=== PATIENT | male | born 1970 | race American Indian/Alaskan Native ===

== ENCOUNTER 2018-09-02 10:46 | Inpatient (IN) | payer SELFPAY ==
[2018-09-02 13:06] LABS: Basophils % (Auto) 0.7 % (0.0-1.8); Eosinophils % (Auto) 0.7 % (0.0-4.3); Hematocrit 39.9 % (35.5-45.6); Hemoglobin 13.4 gm/dl (11.8-15.2); Lymphocytes # (Auto) 1.4 K/mm3 (1.2-5.4); Lymphocytes % (Auto) 21.4 % (13.4-35.0); Mean Corpuscular HGB Conc 34 % (32-34); Mean Corpuscular Volume 94 fl (84-94); Monocytes # (Auto) 0.7 K/mm3 (0.0-0.8); Monocytes % (Auto) 10.5 % (0.0-7.3); Platelet Count 355 K/mm3 (140-440); Red Blood Count 4.24 M/mm3 (3.65-5.03); Red Cell Distribution Width 14.8 % (13.2-15.2)
[2018-09-02 13:29] LABS: Albumin 2.8 g/dL (3.9-5); Calcium 8.1 mg/dL (8.4-10.2)
--- NOTE | 2018-09-02 13:29 | XRay Report ---
PROCEDURE: XR CHEST ROUTINE 2V TECHNIQUE: PA and lateral chest radiographs were obtained. HISTORY: shortness of breath and bilateral lower leg edema. COMPARISONS: None. FINDINGS: Heart: Normal. Mediastinum/Vessels: Normal. Lungs/Pleural space: There are patchy airspace opacities throughout the right midlung, compatible wi th pneumonia. No effusion or pneumothorax is seen. Bony thorax: No acute osseous abnormality. IMPRESSION: Patchy airspace opacities are present throughout the right midlung, compatible with pneu monia. Recommend radiographic follow-up to resolution. This document is electronically signed by Karen Cortes MD., September 02 2018 01:27:36 PM ET
--- NOTE | 2018-09-02 14:00 | Emergency Department Report ---
ED General Adult HPI - General Chief complaint: Extremity Problem,Nontraumatic Stated complaint: COUGH/FEET SWOLLEN Time Seen by Provider: 09/02/18 12:32 Source: patient Mode of arrival: Ambulatory Limitations: No Limitations - History of Present Illness Initial comments: 47 Y/O -Malagasy male presents to the emergency room for bilateral feet swelling and shortness of breath. Patient denies any past medical history currently takes no medications on a daily basis and has no known drug allergies. Location: chest, lower extremity Quality: aching Consistency: constant Improves with: none Worsens with: movement Associated Symptoms: cough, shortness of breath Treatments Prior to Arrival: none - Related Data Previous Rx's Medication Instructions Recorded Last Taken Type Aspirin EC 81 mg PO QDAY #100 tablet 09/13/18 Unknown Rx Carvedilol [Coreg] 3.125 mg PO BID 60 Days #60 tablet 09/13/18 Unknown Rx Furosemide [Lasix TAB] 40 mg PO QDAY #30 tablet 09/13/18 Unknown Rx Lisinopril [Zestril TAB] 2.5 mg PO QDAY 30 Days #30 tablet 09/13/18 Unknown Rx Spironolactone [Aldactone] 25 mg PO QDAY #30 tablet 09/13/18 Unknown Rx Allergies Allergy/AdvReac Type Severity Reaction Status Date / Time enoxaparin [From Lovenox] Allergy Shortness Verified 09/03/18 02:59 of Breath azithromycin [From Zithromax] AdvReac Dizziness Verified 09/04/18 08:03 ED Review of Systems ROS: Stated complaint: COUGH/FEET SWOLLEN Other details as noted in HPI ED Past Medical Hx - Past Medical History Previous Medical History?: No - Surgical History Past Surgical History?: No - Social History Smoking Status: Current Every Day Smoker Substance Use Type: None - Medications Home Medications: Home Medications Medication Instructions Recorded Confirmed Last Taken Type Aspirin EC 81 mg PO QDAY #100 tablet 09/13/18 Unknown Rx Carvedilol [Coreg] 3.125 mg PO BID 60 Days #60 tablet 09/13/18 Unknown Rx Furosemide [Lasix TAB] 40 mg PO QDAY #30 tablet 09/13/18 Unknown Rx Lisinopril [Zestril TAB] 2.5 mg PO QDAY 30 Days #30 tablet 09/13/18 Unknown Rx Spironolactone [Aldactone] 25 mg PO QDAY #30 tablet 09/13/18 Unknown Rx ED Physical Exam - General Limitations: No Limitations General appearance: alert, in no apparent distress - Head Head exam: Present: atraumatic, normocephalic - Eye Eye exam: Present: normal appearance, EOMI - ENT ENT exam: Present: mucous membranes moist - Neck Neck exam: Present: normal inspection - Respiratory Respiratory exam: Present: normal lung sounds bilaterally. Absent: respiratory distress - Cardiovascular Cardiovascular Exam: Present: tachycardia - GI/Abdominal GI/Abdominal exam: Present: soft, normal bowel sounds - Extremities Exam Extremities exam: Present: normal inspection - Back Exam Back exam: Present: normal inspection - Neurological Exam Neurological exam: Present: alert, oriented X3 - Psychiatric Psychiatric exam: Present: normal affect, normal mood - Skin Skin exam: Present: warm, dry, intact, normal color. Absent: rash ED Course Vital Signs 09/02/18 09/02/18 09/02/18 10:50 12:22 15:27 Temperature 97.5 F L 98.2 F Pulse Rate 94 H 98 H Respiratory 20 16 16 Rate Blood Pressure 107/75 Blood Pressure 119/84 [Left] O2 Sat by Pulse 100 100 Oximetry ED Medical Decision Making - Lab Data Result diagrams: 09/03/18 05:07 09/05/18 06:17 Laboratory Tests 09/02/18 09/02/18 12:54 12:54 WBC 6.4 RBC 4.24 Hgb 13.4 Hct 39.9 MCV 94 MCH 32 MCHC 34 RDW 14.8 Plt Count 355 Lymph % (Auto) 21.4 [place] % (Auto) 10.5 H Eos % (Auto) 0.7 Baso % (Auto) 0.7 Lymph # 1.4 Boundary # 0.7 Eos # 0.0 Baso # 0.0 Seg Neutrophils % 66.7 Seg Neutrophils # 4.2 Sodium 139 Potassium 4.1 Chloride 101.1 Carbon Dioxide 27 Anion Gap 15 BUN 20 Creatinine 1.3 Estimated GFR 59 BUN/Creatinine Ratio 15 Glucose 87 Calcium 8.1 L Total Bilirubin 0.20 AST 64 H ALT 222 H Alkaline Phosphatase 168 H NT-Pro-B Natriuret Pep 2561 H Total Protein 5.5 L Albumin 2.8 L Albumin/Globulin Ratio 1.0 - Radiology Data Radiology results: report reviewed Patient: KALEY BALDWIN MR#: [id number] [birth year] : 1970 Acct:[id number] Age/Sex: 47 / M ADM Date: 09/02/18 Loc: ED Attending Dr: Ordering Physician: BLADIMIR PAPPAS Date of Service: 09/02/18 Procedure(s): XR chest routine 2V Accession Number(s): [id number] cc: BLADIMIR PAPPAS Fluoro Time In Minutes: PROCEDURE: XR CHEST ROUTINE 2V TECHNIQUE: PA and lateral chest radiographs were obtained. HISTORY: shortness of breath and bilateral lower leg edema. COMPARISONS: None. FINDINGS: Heart: Normal. Mediastinum/Vessels: Normal. Lungs/Pleural space: There are patchy airspace opacities throughout the right midlung, compatible with pneumonia. No effusion or pneumothorax is seen. Bony thorax: No acute osseous abnormality. IMPRESSION: Patchy airspace opacities are present throughout the right midlung, compatible with pneumonia. Recommend radiographic follow-up to resolution. This document is electronically signed by Karen Cortes MD., September 02 2018 01:27:36 PM ET Transcribed By: [facility] Dictated By: KAREN CORTES M.D. Electronically Authenticated By: KAREN CORTES M.D. Signed Date/Time: 09/02/18 1329 DD/ 1255 TD/TT: 09/02/18 1255 - Medical Decision Making And evaluated by this provider in fast track. CBC CMP's BNP chest x-rays ordered. IV Insertion Pl., Levaquin 500 mg IV, Lasix 40 mg IV. Spoke to Dr. Vazquez hospitalist evaluation admit to surgical telemetry remote. Critical care attestation.: If time is entered above; I have spent that time in minutes in the direct care of this critically ill patient, excluding procedure time. ED Disposition Clinical Impression: Pneumonia Qualifiers: Laterality: right Lung location: unspecified part of lung Disposition: - OP ADMIT IP TO THIS HOSP Is pt being admited?: Yes Does the pt Need Aspirin: Yes Condition: Stable
[2018-09-02] MEDS ORDERED: LEVAQUIN 500MG/100ML 500 MG/100 ML BAG IV ONE (14:01)
[2018-09-02] MEDS ORDERED: LASIX IV ONE (14:13)
--- NOTE | 2018-09-02 17:51 | History and Physical Report ---
History of Present Illness Date of examination: 09/02/18 Date of admission: 09/02/18 15:09 Chief complaint: Shortness of breath on exertion and bilateral lower extremity swelling for 2 weeks History of present illness: 47-year-old -Danish male with no significant past medical history presents to the emergency room for shortness of breath on exertion for 2 weeks. No precipitating factor. Patient also developed swelling of both lower extremities over the last 2 weeks. No precipitating factors. No hypertension or CHF in the past. No fever or chills. Shortness of breath on minimal exertion about 100 feet. Past Medical History No known history. Surgical History Past Surgical History?: No Social History Smoking Status: Current Every Day Smoker--pack a day. Substance Use Type: None Family history: Htn Review of systems ROS: Stated complaint: COUGH/FEET SWOLLEN Other details as noted in HPI COLOR IRREGULARITIES Medications and Allergies Allergies Allergy/AdvReac Type Severity Reaction Status Date / Time No Known Allergies Allergy Unverified 09/02/18 10:48 Exam - Physical Exam Narrative exam: Lying in bed comfortably - Constitutional Vitals: Temp Pulse Resp BP Pulse Ox 98.2 F 98 H 16 119/84 100 09/02/18 15:27 09/02/18 15:27 09/02/18 15:27 09/02/18 15:27 09/02/18 15:27 General appearance: Present: mild distress, well-nourished - EENT Eyes: Present: PERRL ENT: hearing intact, clear oral mucosa - Neck Neck: Present: supple, normal ROM - Respiratory Respiratory effort: normal Respiratory: bilateral: CTA - Cardiovascular Heart rate: 92 Rhythm: regular Heart Sounds: Present: S1 & S2. Absent: rub, click - Extremities Extremities: no ischemia, pulses intact, pulses symmetrical, No edema Extremity abnormal: edema (2+ pitting edema) Peripheral Pulses: within normal limits - Abdominal General gastrointestinal: Present: soft, non-tender, non-distended, normal bowel sounds Male genitourinary: Present: normal - Integumentary Integumentary: Present: clear, warm, dry - Musculoskeletal Musculoskeletal: gait normal, strength equal bilaterally - Psychiatric Psychiatric: appropriate mood/affect, intact judgment & insight - Neurologic Neurologic: CNII-XII intact, moves all extremities Results - Labs CBC & Chem 7: 09/02/18 12:54 09/02/18 12:54 Labs: Laboratory Last Values WBC 6.4 K/mm3 (4.5-11.0) 09/02/18 12:54 RBC 4.24 M/mm3 (3.65-5.03) 09/02/18 12:54 Hgb 13.4 gm/dl (11.8-15.2) 09/02/18 12:54 Hct 39.9 % (35.5-45.6) 09/02/18 12:54 MCV 94 fl (84-94) 09/02/18 12:54 MCH 32 pg (28-32) 09/02/18 12:54 MCHC 34 % (32-34) 09/02/18 12:54 RDW 14.8 % (13.2-15.2) 09/02/18 12:54 Plt Count 355 K/mm3 (140-440) 09/02/18 12:54 Lymph % (Auto) 21.4 % (13.4-35.0) 09/02/18 12:54 [place] % (Auto) 10.5 % (0.0-7.3) H 09/02/18 12:54 Eos % (Auto) 0.7 % (0.0-4.3) 09/02/18 12:54 Baso % (Auto) 0.7 % (0.0-1.8) 09/02/18 12:54 Lymph # 1.4 K/mm3 (1.2-5.4) 09/02/18 12:54 [place] # 0.7 K/mm3 (0.0-0.8) 09/02/18 12:54 Eos # 0.0 K/mm3 (0.0-0.4) 09/02/18 12:54 Baso # 0.0 K/mm3 (0.0-0.1) 09/02/18 12:54 Seg Neutrophils % 66.7 % (40.0-70.0) 09/02/18 12:54 Seg Neutrophils # 4.2 K/mm3 (1.8-7.7) 09/02/18 12:54 Sodium 139 mmol/L (137-145) 09/02/18 12:54 Potassium 4.1 mmol/L (3.6-5.0) 09/02/18 12:54 Chloride 101.1 mmol/L (98-107) 09/02/18 12:54 Carbon Dioxide 27 mmol/L (22-30) 09/02/18 12:54 Anion Gap 15 mmol/L 09/02/18 12:54 BUN 20 mg/dL (9-20) 09/02/18 12:54 Creatinine 1.3 mg/dL (0.8-1.5) 09/02/18 12:54 Estimated GFR 59 ml/min 09/02/18 12:54 BUN/Creatinine Ratio 15 % 09/02/18 12:54 Glucose 87 mg/dL (75-100) 09/02/18 12:54 Lactic Acid 3.20 mmol/L (0.7-2.0) H* 09/02/18 16:28 Calcium 8.1 mg/dL (8.4-10.2) L 09/02/18 12:54 Total Bilirubin 0.20 mg/dL (0.1-1.2) 09/02/18 12:54 AST 64 units/L (5-40) H 09/02/18 12:54 ALT 222 units/L (7-56) H 09/02/18 12:54 Alkaline Phosphatase 168 units/L (35-129) H 09/02/18 12:54 NT-Pro-B Natriuret Pep 2561 pg/mL (0-450) H 09/02/18 12:54 Total Protein 5.5 g/dL (6.3-8.2) L 09/02/18 12:54 Albumin 2.8 g/dL (3.9-5) L 09/02/18 12:54 Albumin/Globulin Ratio 1.0 % 09/02/18 12:54 - Imaging and Cardiology EKG: report reviewed (normal sinus rhythm premature ventricular complexes 92/m LVH by voltage criteria) Chest x-ray: report reviewed Imaging and Cardiology: Chest x-ray FINDINGS: Heart: Normal. Mediastinum/Vessels: Normal. Lungs/Pleural space: There are patchy airspace opacities throughout the right midlung, compatible with pneumonia. No effusion or pneumothorax is seen. Bony thorax: No acute osseous abnormality. IMPRESSION: Patchy airspace opacities are present throughout the right midlung, compatible with pneumonia. Recommend radiographic follow-up to resolution. Assessment and Plan Advance Directives: Yes (full code) VTE prophylaxis?: Chemical Plan of care discussed with patient/family: Yes - Patient Problems (1) Pneumonia Current Visit: Yes Status: Acute Qualifiers: Laterality: right Lung location: unspecified part of lung Plan to address problem: Right-sided pneumonia IV Rocephin and Zithromax initiated Nebulizer treatments when necessary Lactic acid second set high (2) Acute exacerbation of CHF (congestive heart failure) Current Visit: Yes Status: Acute Qualifiers: Heart failure type: combined systolic and diastolic Qualified Code(s): I50.43 - Acute on chronic combined systolic (congestive) and diastolic (congestive) heart failure Plan to address problem: Echocardiogram ordered for ejection fraction and valve function IV Lasix 40 every 12 Potassium every 2 hours BNP high at 2000 plus Pulmonary hypertension to be ruled out (3) Pedal edema Current Visit: Yes Status: Acute Plan to address problem: Venous Duplex scan to rule out DVT Pulmonary hypertension may be causing the pedal edema (4) Transaminitis Current Visit: Yes Status: Acute Plan to address problem: Hepatitis profile ordered Passive congestion of liver?? AST 64 ALT 222 (5) Malnutrition Current Visit: Yes Status: Chronic Qualifiers: Malnutrition type: protein-calorie malnutrition Protein-calorie malnutrition severity: moderate Qualified Code(s): E44.0 - Moderate protein- calorie malnutrition Plan to address problem: Dietitian consult requested. Albumin 2.8 (6) DVT prophylaxis Current Visit: Yes Status: Resolved Plan to address problem: On Lovenox and GI prophylaxis
[2018-09-02] MEDS ORDERED: ZOFRAN IV PRN (17:56)
[2018-09-02] MEDS ORDERED: PERCOCET 5/325 PO PRN (17:56)
[2018-09-02] MEDS ORDERED: TYLENOL PO PRN (17:56)
[2018-09-02] MEDS ORDERED: DILAUDID IV PRN (17:56)
[2018-09-02] MEDS ORDERED: DUONEB *Not for PRN Use IH (18:26)
[2018-09-02] MEDS: ZITHROMAX 500 MG in NACL 0.9% 250ML 250 ML IV SCH (19:30)
[2018-09-02 19:42] LABS: Hepatitis B Surface Antigen Non-Reactive (Negative); Hepatitis C Virus Antibody Non-Reactive (NonReactive)
[2018-09-02] MEDS: ROCEPHIN/NS 2 GM/100 ML 2 GM/100 ML BAG IV SCH (20:38)
[2018-09-02] MEDS: K-DUR PO SCH ×2 (21:30→22:00)
[2018-09-02] MEDS: SODIUM CHLORIDE FLUSH SYRINGE 10 ML IV SCH ×2 (21:30→22:00)
[2018-09-02] MEDS: PEPCID PO SCH ×2 (21:31→22:00)
[2018-09-02] MEDS ORDERED: LOVENOX SUB-Q SCH (22:00)
[2018-09-02] MEDS ORDERED: BENADRYL IV ONE (22:23)
[2018-09-03 05:49] LABS: Alanine Aminotransferase 203 units/L (7-56); Albumin 2.9 g/dL (3.9-5); BUN/Creatinine Ratio 16; Blood Urea Nitrogen 16 mg/dL (9-20); Calcium 8.1 mg/dL (8.4-10.2); Hemolysis Index 3
[2018-09-03 05:53] LABS: Hematocrit 40.2 % (35.5-45.6); Hemoglobin 13.6 gm/dl (11.8-15.2); Mean Corpuscular HGB Conc 34 % (32-34); Mean Corpuscular Volume 94 fl (84-94); Red Blood Count 4.27 M/mm3 (3.65-5.03); Red Cell Distribution Width 14.8 % (13.2-15.2)
[2018-09-03 05:54] LABS: Basophils % (Auto) 0.8 % (0.0-1.8); Eosinophils % (Auto) 0.9 % (0.0-4.3); Lymphocytes # (Auto) 1.7 K/mm3 (1.2-5.4); Lymphocytes % (Auto) 32.1 % (13.4-35.0); Mean Platelet Volume 8.3 fl (6-12); Monocytes # (Auto) 0.5 K/mm3 (0.0-0.8); Monocytes % (Auto) 9.7 % (0.0-7.3); Platelet Count 325 K/mm3 (140-440)
[2018-09-03] MEDS: LASIX IV SCH ×2 (06:05→18:51)
--- NOTE | 2018-09-03 09:51 | Vascular Lab Report ---
PROCEDURE: VL VENOUS DUPLEX LE BILAT TECHNIQUE: Grayscale, color flow and spectral waveform images were obtained of bilateral lower extre mities. HISTORY: Bilateral pedal edema COMPARISON: None FINDINGS: There is no deep venous thrombosis seen in the left or right lower extremity. Flow is demonstrated by color flow and spectral waveform imaging. There is appropriate wall compression and augmentation. There is also no evidence of superficial venous thrombus. IMPRESSION: There is no evidence for DVT in either right or left lower extremity. This document is electronically signed by Reina Chavez MD., September 03 2018 09:49:03 AM ET
--- NOTE | 2018-09-03 12:14 | Cat Scan Report ---
CT ABDOMEN WITH CONTRAST: HISTORY: Transaminitis, abdominal pain. COMPARISON: none. TECHNIQUE: Helical CT in 1.25mm intervals following IV contrast. Sagittal and coronal reconstructions. FINDINGS: Lung bases: Moderate cardiomegaly and small layering right pleural effusion are identified. There is patchy peribronchial infiltration in the visualized right middle and lower lobes. The visualized left lung base is within normal limits. Liver: The liver is borderline enlarged. No evidence for focal mass or surface nodularity. Biliary system: Normal. Pancreas: Normal. Spleen: Normal. Kidneys/ureters/bladder: Normal. Adrenal glands: Normal. Aorta: Normal. Intestines: The visualized GI system is unremarkable. No evidence for obstruction or focal inflammation. Appendix: Not included. Ascites: None. Adenopathy: None. Musculoskeletal: Intact. Mild lumbar spondylosis. IMPRESSION: Moderate cardiomegaly and small layering right pleural effusion. Patchy infiltration at the right lung base. Correlate for pneumonia. Borderline to mild hepatomegaly. This may represent congestive hepatomegaly. No focal mass or parenchymal disease is appreciated.
--- NOTE | 2018-09-03 13:29 | Progress Note ---
Assessment and Plan /Pneumonia Right-sided pneumonia IV Rocephin and Zithromax initiated Nebulizer treatments when necessary Lactic acid trending down / Acute exacerbation of CHF (congestive heart failure) Echocardiogram ordered for ejection fraction and valve function IV Lasix 40 every 12 Potassium every 2 hours BNP high at 2000 plus Pulmonary hypertension to be ruled out /Pedal edema Venous Duplex scan to rule out DVT Pulmonary hypertension may be causing the pedal edema /Transaminitis Hepatitis profile ordered Passive congestion of liver?? AST 64 ALT 222 /Malnutrition Dietitian consult requested. Albumin 2.8 /DVT prophylaxis On Lovenox and GI prophylaxis Brief History: 47-year-old -[place] male with no significant past medical history presents to the emergency room for shortness of breath on exertion for 2 weeks. Radiological data: EKG: report reviewed (normal sinus rhythm premature ventricular complexes 92/m LVH by voltage criteria) Chest x-ray: report reviewed Patchy airspace opacities are present throughout the right midlung, compatible with pneumonia. Recommend radiographic follow-up to resolution. Hospitalist Physical exam: GENERAL: well-developed male lying on bed appeared to be in no discomfort. HEENT: Normocephalic. Atraumatic. No conjunctival congestion or icterus. Patient has moist mucous membranes. NECK: Supple. Trachea midline. CHEST/LUNGS: Clear to auscultated bilaterally, breathing nonlabored. No wheezes crackles or rhonchi. HEART/CARDIOVASCULAR: Regular in rate and rhythm. S1 and S2 positive. ABDOMEN: Abdomen is soft, nontender. Patient has normal bowel sounds. SKIN: There is no rash. Warm and dry. NEURO: No focal motor deficit. Follows command. MUSCULOSKELETAL: No joint effusion or tenderness. EXTRIMITY: trace edema, no cyanosis or clubbing. PSYCH: Cooperative. Subjective Date of service: 09/03/18 Interval history: Patient seen and examined feeling better, no chest pain, tolerating diet Objective - Constitutional Vitals: Vital Signs - 12hr 09/03/18 04:52 Temperature 98.5 F Pulse Rate 85 Respiratory 20 Rate Blood Pressure 117/64 O2 Sat by Pulse 95 Oximetry - Labs CBC & Chem 7: 09/03/18 05:07 09/03/18 05:07 Labs: Abnormal lab results 09/02/18 09/02/18 09/02/18 Range/Units 12:54 16:28 18:58 [place] % (Auto) (0.0-7.3) % Glucose (75-100) mg/dL Lactic Acid 3.20 H* 2.40 H* (0.7-2.0) mmol/L Calcium 8.1 L (8.4-10.2) mg/dL AST 64 H (5-40) units/L ALT 222 H (7-56) units/L Alkaline Phosphatase 168 H (35-129) units/L Total Protein 5.5 L (6.3-8.2) g/dL Albumin 2.8 L (3.9-5) g/dL 09/02/18 09/03/18 09/03/18 Range/Units 22:51 00:59 05:07 [place] % (Auto) 9.7 H (0.0-7.3) % Glucose (75-100) mg/dL Lactic Acid 3.60 H* 2.30 H* (0.7-2.0) mmol/L Calcium (8.4-10.2) mg/dL AST (5-40) units/L ALT (7-56) units/L Alkaline Phosphatase (35-129) units/L Total Protein (6.3-8.2) g/dL Albumin (3.9-5) g/dL 09/03/18 Range/Units 05:07 [place] % (Auto) (0.0-7.3) % Glucose 109 H (75-100) mg/dL Lactic Acid (0.7-2.0) mmol/L Calcium 8.1 L (8.4-10.2) mg/dL AST 52 H (5-40) units/L ALT 203 H (7-56) units/L Alkaline Phosphatase 153 H (35-129) units/L Total Protein 5.9 L (6.3-8.2) g/dL Albumin 2.9 L (3.9-5) g/dL
[2018-09-03] MEDS: PEPCID PO SCH ×2 (13:33→22:12)
[2018-09-03] MEDS: K-DUR PO SCH ×2 (13:34→22:12)
[2018-09-03] MEDS: SODIUM CHLORIDE FLUSH SYRINGE 10 ML IV SCH ×2 (13:34→22:12)
[2018-09-03] MEDS: ZITHROMAX 500 MG in NACL 0.9% 250ML 250 ML IV SCH (18:51)
[2018-09-03] MEDS ORDERED: BENADRYL IV PRN (19:33)
[2018-09-03] MEDS ORDERED: BENADRYL ONE (19:41)
[2018-09-03] MEDS ORDERED: DECADRON IV SCH (20:00)
[2018-09-03] MEDS ORDERED: DECADRON IV ONE (20:28)
[2018-09-03] MEDS: ROCEPHIN/NS 2 GM/100 ML 2 GM/100 ML BAG IV SCH (22:12)
[2018-09-04] MEDS: LASIX IV SCH ×2 (06:06→17:18)
[2018-09-04] MEDS: SODIUM CHLORIDE FLUSH SYRINGE 10 ML IV PRN (06:07)
[2018-09-04] MEDS: SODIUM CHLORIDE FLUSH SYRINGE 10 ML IV SCH ×2 (09:28→22:27)
[2018-09-04] MEDS: K-DUR PO SCH (09:28)
[2018-09-04] MEDS: PEPCID PO SCH ×2 (09:28→22:22)
[2018-09-04] MEDS ORDERED: ZITHROMAX PO SCH (10:00)
--- NOTE | 2018-09-04 12:36 | Progress Note ---
Assessment and Plan /Right-sided pneumonia IV Rocephin and Zithromax initiated Nebulizer treatments when necessary Lactic acid trending down / Acute exacerbation of CHF (congestive heart failure) with systolic dysfunction, new diagnosis Echocardiogram showed ejection fraction 10% IV Lasix 40 every 12H, ASPIRIN/STATIN Consult cardiology for further recommendation /Pedal edema, due to CHF exacerbation Venous Duplex scan ruled out DVT cont lasix iv, monitor daily wt/ins/os /Transaminitis Hepatitis profile negative due to Passive congestion of liver?? cont to trend /Malnutrition, moderate Dietitian consult requested. Albumin 2.8, will order prealbumin /DVT prophylaxis On Lovenox and GI prophylaxis Brief History: 47-year-old -Scottish male with no significant past medical history presents to the emergency room for shortness of breath on exertion for 2 weeks. Radiological data: EKG: report reviewed (normal sinus rhythm premature ventricular complexes 92/m LVH by voltage criteria) Chest x-ray: report reviewed Patchy airspace opacities are present throughout the right midlung, compatible with pneumonia. Recommend radiographic follow-up to resolution. Hospitalist Physical exam: GENERAL: well-developed AA male lying on bed appeared to be in no discomfort. HEENT: Normocephalic. Atraumatic. No conjunctival congestion or icterus. Patient has moist mucous membranes. NECK: Supple. Trachea midline. CHEST/LUNGS: Clear to auscultated bilaterally, breathing nonlabored. No wheezes crackles or rhonchi. HEART/CARDIOVASCULAR: Regular in rate and rhythm. S1 and S2 positive. ABDOMEN: Abdomen is soft, nontender. Patient has normal bowel sounds. SKIN: There is no rash. Warm and dry. NEURO: No focal motor deficit. Follows command. MUSCULOSKELETAL: No joint effusion or tenderness. EXTRIMITY: trace edema, no cyanosis or clubbing. PSYCH: Cooperative. Subjective Date of service: 09/04/18 Interval history: Patient seen and examined feeling better, no chest pain, tolerating diet concern about his new diagnosis of heart failure Admits that he does take cocaine sometimes Objective - Constitutional Vitals: Vital Signs - 12hr 09/04/18 06:12 Temperature 98.1 F Pulse Rate 74 Respiratory 18 Rate Blood Pressure 109/79 O2 Sat by Pulse 95 Oximetry - Labs CBC & Chem 7: 09/03/18 05:07 09/05/18 06:17 Labs: Abnormal lab results 09/03/18 Range/Units 19:39 POC Glucose 242 H (70-105)
--- NOTE | 2018-09-04 13:37 | Consultation ---
History of Present Illness Consult date: 09/04/18 Consult reason: congestive heart failure History of present illness: Patient is a 47 year old male with a history of polysubstance abuse who pres ented to this hospital with shortness of breath and lower extremity edema. In addition, patient reports unintentional weight loss of 40lbs over the last several weeks. A chest x-ray revealed cardiomegaly, patchy airspace opacities with mild interstitial edema. Further evaluation with an echocardiogram reveals severe 4 chamber dilated cardiomyopathy, ejection fraction less than 15%. The duration is uncertain. There is also a patent foramen ovale but saline contrast bubble study is negative. Patient denies a prior medical history. He does not take any medications at home and has not have any prior cardiac workup. 11 beat nonsustained ventricular tachycardia on telemetry monitoring. He denies chest pain, palpitations and dizziness. His presenting EKG shows sinus rhythm, LVH with repolarization abnormalities. Cardiac consultation has been requested for CHF evaluation and management. Medications and Allergies Allergies Allergy/AdvReac Type Severity Reaction Status Date / Time enoxaparin [From Lovenox] Allergy Shortness Verified 09/03/18 02:59 of Breath azithromycin [From Zithromax] AdvReac Dizziness Verified 09/04/18 08:03 Home Medications Medication Instructions Recorded Confirmed Last Taken Type No Known Home Medications [No 09/04/18 09/04/18 Unknown History Reported Home Medications] Active Meds: Active Medications Acetaminophen (Tylenol) 650 mg PO Q4H PRN PRN Reason: Pain MILD(1-3)/Fever >100.5/CANTRELL Albuterol/Ipratropium (Duoneb *Not For Prn Use*) 1 ampul IH Q3H PRN PRN Reason: Wheezing Diphenhydramine HCl (Benadryl) 25 mg IV Q4H PRN PRN Reason: Itching Last Admin: 09/03/18 19:40 Dose: 25 mg Documented by: Famotidine (Pepcid) 20 mg PO BID [facility] Last Admin: 09/04/18 09:28 Dose: 20 mg Documented by: Furosemide (Lasix) 40 mg IV 0600,1800 [facility] Last Admin: 09/04/18 06:06 Dose: 40 mg Documented by: Hydromorphone HCl (Dilaudid) 0.5 mg IV Q3H PRN PRN Reason: Pain , Severe (7-10) Ceftriaxone Sodium (Rocephin/Ns 2 Gm/100 Ml) 2 gm in 100 mls @ 200 mls/hr IV Q24H [facility]; Protocol Last Admin: 09/03/18 22:12 Dose: 200 mls/hr Documented by: Ondansetron HCl (Zofran) 4 mg IV Q8H PRN PRN Reason: Nausea And Vomiting Oxycodone/Acetaminophen (Percocet 5/325) 1 tab PO Q6H PRN PRN Reason: Pain, Moderate (4-6) Potassium Chloride (K-Dur) 20 meq PO Q12HR [facility] Last Admin: 09/04/18 09:28 Dose: 20 meq Documented by: Sodium Chloride (Sodium Chloride Flush Syringe 10 Ml) 10 ml IV BID [facility] Last Admin: 09/04/18 09:28 Dose: 10 ml Documented by: Sodium Chloride (Sodium Chloride Flush Syringe 10 Ml) 10 ml IV PRN PRN PRN Reason: LINE FLUSH Last Admin: 09/04/18 06:07 Dose: 10 ml Documented by: Physical Examination Vital Signs Temp Pulse Resp BP Pulse Ox 97.5 F L 94 H 20 107/75 100 09/02/18 10:50 09/02/18 10:50 09/02/18 10:50 09/02/18 10:50 09/02/18 10:50 General appearance: no acute distress HEENT: Positive: PERRL Neck: Positive: trachea midline Cardiac: Positive: Reg Rate and Rhythm Lungs: Positive: Decreased Breath Sounds Neuro: Positive: Grossly Intact Extremities: Absent: edema Results 09/03/18 05:07 09/03/18 05:07 Assessment and Plan Pneumonia Acute systolic heart failure Elevated liver transaminase Substance abuse Unintentional weight loss NSVT seen on telemetry An echocardiogram reveals severe 4 chamber dilated cardiomyopathy, ejection fraction less than 15%. The duration is uncertain. There is also a patent foramen ovale but saline contrast bubble study is negative. LE venous duplex: negative for DVT. Recommendations Check a TSH and magnesium. Medical therapy for decompensated heart failure to include beta blockers, IV diuretics and afterload reduction therapy. Further cardiac evaluation will depend on clinical course.
[2018-09-04] MEDS: ALDACTONE PO SCH (18:59)
[2018-09-04] MEDS: HALFPRIN EC PO SCH (18:59)
[2018-09-04] MEDS: COREG PO SCH (22:24)
[2018-09-04] MEDS: ROCEPHIN/NS 2 GM/100 ML 2 GM/100 ML BAG IV SCH (22:27)
[2018-09-05] MEDS: SODIUM CHLORIDE FLUSH SYRINGE 10 ML IV PRN (05:46)
[2018-09-05] MEDS: LASIX IV SCH ×2 (05:46→17:23)
[2018-09-05 07:07] LABS: BUN/Creatinine Ratio 22; Blood Urea Nitrogen 20 mg/dL (9-20); Calcium 8.5 mg/dL (8.4-10.2); Hemolysis Index 8
[2018-09-05] MEDS: PEPCID PO SCH ×2 (09:30→21:01)
[2018-09-05] MEDS: ZESTRIL PO SCH (09:30)
[2018-09-05] MEDS: COREG PO SCH ×2 (09:30→21:01)
[2018-09-05] MEDS: ALDACTONE PO SCH (09:30)
[2018-09-05] MEDS: SODIUM CHLORIDE FLUSH SYRINGE 10 ML IV SCH ×2 (09:31→21:03)
[2018-09-05] MEDS: HALFPRIN EC PO SCH (09:31)
--- NOTE | 2018-09-05 10:28 | Progress Note ---
Assessment and Plan Pneumonia Acute systolic heart failure Elevated liver transaminase Substance abuse An echocardiogram reveals severe 4 chamber dilated cardiomyopathy, ejection fraction less than 15%. The duration is uncertain. There is also a patent foramen ovale but saline contrast bubble study is negative. LE venous duplex: negative for DVT. Recommendations Medical therapy for decompensated heart failure as tolerated. Predischarge Lexiscan thallium stress test will be done tomorrow morning. Subjective Date of service: 09/05/18 Interval history: Patient has no complaints. Reports his breathing is improving. Objective Vital Signs Temp Pulse Resp BP Pulse Ox 09/05/18 05:20 97.8 F 56 L 16 119/90 96 09/04/18 23:39 98.0 F 65 15 99/63 94 09/04/18 22:24 50 L 105/71 09/04/18 17:05 98.0 F 106 H 18 115/85 99 09/04/18 12:57 98.2 F 94 H 16 114/77 100 - Physical Examination General: No Apparent Distress HEENT: Positive: PERRL Neck: Positive: trachea midline Cardiac: Positive: Irregularly Regular Lungs: Positive: Decreased Breath Sounds Neuro: Positive: Grossly Intact Extremities: Absent: edema - Labs and Meds Comprehensive Metabolic Panel 09/05/18 Range/Units 06:17 Sodium 138 (137-145) mmol/L Potassium 4.0 (3.6-5.0) mmol/L Chloride 98.7 (98-107) mmol/L Carbon Dioxide 28 (22-30) mmol/L BUN 20 (9-20) mg/dL Creatinine 0.9 (0.8-1.5) mg/dL Glucose 114 H (75-100) mg/dL Calcium 8.5 (8.4-10.2) mg/dL
--- NOTE | 2018-09-05 14:27 | Progress Note ---
Assessment and Plan / Acute exacerbation of CHF (congestive heart failure) with systolic dysfunction, new diagnosis Echocardiogram showed ejection fraction 10% IV Lasix 40 every 12H, ASPIRIN/STATIN Consult cardiology for further recommendation Medical therapy for decompensated heart failure as tolerated. Predischarge Lexiscan thallium stress test will be done tomorrow morning. /Right-sided pneumonia IV Rocephin and Zithromax initiated Nebulizer treatments when necessary Lactic acid trending down /Pedal edema, due to CHF exacerbation Venous Duplex scan ruled out DVT cont lasix iv, monitor daily wt/ins/os /Transaminitis Hepatitis profile negative due to Passive congestion of liver?? cont to trend /Malnutrition, moderate Dietitian consult requested. Albumin 2.8, will order prealbumin /DVT prophylaxis On Lovenox and GI prophylaxis Brief History: 47-year-old -[place] male with no significant past medical history presents to the emergency room for shortness of breath on exertion for 2 weeks. Radiological data: EKG: report reviewed (normal sinus rhythm premature ventricular complexes 92/m LVH by voltage criteria) Chest x-ray: report reviewed Patchy airspace opacities are present throughout the right midlung, compatible with pneumonia. Recommend radiographic follow-up to resolution. Hospitalist Physical exam: GENERAL: well-developed AA male lying on bed appeared to be in no discomfort. HEENT: Normocephalic. Atraumatic. No conjunctival congestion or icterus. Patient has moist mucous membranes. NECK: Supple. Trachea midline. CHEST/LUNGS: Clear to auscultated bilaterally, breathing nonlabored. No wheezes crackles or rhonchi. HEART/CARDIOVASCULAR: Regular in rate and rhythm. S1 and S2 positive. ABDOMEN: Abdomen is soft, nontender. Patient has normal bowel sounds. SKIN: There is no rash. Warm and dry. NEURO: No focal motor deficit. Follows command. MUSCULOSKELETAL: No joint effusion or tenderness. EXTRIMITY: trace edema, no cyanosis or clubbing. PSYCH: Cooperative. Subjective Date of service: 09/05/18 Interval history: Patient seen and examined feeling better, no chest pain, tolerating diet concern about his new diagnosis of heart failure Admits that he does take cocaine sometimes Plan for stress test tomorrow Objective - Constitutional Vitals: Vital Signs - 12hr 09/05/18 09/05/18 05:20 12:38 Temperature 97.8 F 99.2 F Pulse Rate 56 L 105 H Respiratory 16 20 Rate Blood Pressure 119/90 112/85 O2 Sat by Pulse 96 97 Oximetry - Labs CBC & Chem 7: 09/03/18 05:07 09/05/18 06:17 Labs: Abnormal lab results 09/05/18 Range/Units 06:17 Glucose 114 H (75-100) mg/dL
[2018-09-05] MEDS: ROCEPHIN/NS 2 GM/100 ML 2 GM/100 ML BAG IV SCH (21:00)
[2018-09-06] MEDS: LASIX IV SCH (06:01)
[2018-09-06] MEDS: SODIUM CHLORIDE FLUSH SYRINGE 10 ML IV PRN (06:03)
[2018-09-06] MEDS ORDERED: LEXISCAN IV ONE ×2 (10:08→10:11)
--- NOTE | 2018-09-06 11:50 | Discharge Summary ---
Providers - Providers Date of Admission: 09/02/18 15:09 Date of discharge: 09/06/18 Attending physician: BRANDON WOO 09/04/18 12:33 Consult to Physician [CONS] Routine Comment: Consulting Provider: CHRISTINE KAN Physician Instructions: Reason For Exam: acute onset CHF Hospitalization Condition: Stable Hospital course: Brief History: 47-year-old -[place] male with no significant past medical history presents to the emergency room for shortness of breath on exertion for 2 weeks. He was admitted for further evaluation and management. Radiological data: EKG: report reviewed (normal sinus rhythm premature ventricular complexes 92/m LVH by voltage criteria) Chest x-ray: report reviewed Patchy airspace opacities are present throughout the right midlung, compatible with pneumonia. Recommend radiographic follow-up to resolution. LE venous doppler - negative Lexiscan thallium stress test: nonischemic cardiomyopathy. Discharge diagnosis and management: / Acute exacerbation of CHF (congestive heart failure) with systolic dysfunction, new diagnosis Echocardiogram showed ejection fraction 10% Placed on IV Lasix 40 every 12H, ASPIRIN/STATIN Consult cardiology for further recommendation Medical therapy for decompensated heart failure as tolerated. Lexiscan thallium stress test reports a nonischemic cardiomyopathy. Patient was cleared for discharge per cardiology and to continue medical Mx outpt /Right-sided pneumonia treated with IV Rocephin and Zithromax. given Nebulizer treatments when necessary Lactic acid trended down /Pedal edema, due to CHF exacerbation Venous Duplex scan ruled out DVT treated with lasix iv, monitored daily wt/ins/os /Transaminitis Hepatitis profile negative due to Passive congestion of liver?? /Malnutrition, moderate Dietitian consult requested. Albumin 2.8, /DVT prophylaxis On Lovenox and GI prophylaxis Hospitalist Physical exam: GENERAL: well-developed AA male lying on bed appeared to be in no discomfort. HEENT: Normocephalic. Atraumatic. No conjunctival congestion or icterus. Patient has moist mucous membranes. NECK: Supple. Trachea midline. CHEST/LUNGS: Clear to auscultated bilaterally, breathing nonlabored. No wheezes crackles or rhonchi. HEART/CARDIOVASCULAR: Regular in rate and rhythm. S1 and S2 positive. ABDOMEN: Abdomen is soft, nontender. Patient has normal bowel sounds. SKIN: There is no rash. Warm and dry. NEURO: No focal motor deficit. Follows command. MUSCULOSKELETAL: No joint effusion or tenderness. EXTRIMITY: trace edema, no cyanosis or clubbing. PSYCH: Cooperative. Disposition: DC-01 TO HOME OR SELFCARE Time spent for discharge: 34 minutes Core Measure Documentation - Palliative Care Palliative Care/ Comfort Measures: Not Applicable - Core Measures Any of the following diagnoses?: none Exam - Constitutional Vitals: Temp Pulse Resp BP Pulse Ox 98.3 F 49 L 16 108/86 95 09/06/18 05:18 09/06/18 05:18 09/06/18 05:18 09/06/18 10:58 09/06/18 05:18 Plan Activity: advance as tolerated Weight Bearing Status: Non-Weight Bearing Diet: low fat, low salt Special Instructions: record daily weights, record daily BP diary Follow up with: CHYNA GEORGES [Other] - 3-5 Days
[2018-09-06 12:44] VITALS: BP 110/69
--- NOTE | 2018-09-06 12:48 | Progress Note ---
Assessment and Plan - Patient Problems (1) Acute exacerbation of CHF (congestive heart failure) Current Visit: Yes Status: Acute Qualifiers: Heart failure type: combined systolic and diastolic Qualified Code(s): I50.43 - Acute on chronic combined systolic (congestive) and diastolic (congestive) heart failure Plan to address problem: Congestive heart failure, with new diagnosis of severe dilated cardiomyopathy. Lexiscan thallium stress test reports a nonischemic cardiomyopathy. Patient is stable for cardiac discharge on guideline directed medical therapy as outlined. Subjective Date of service: 09/06/18 Interval history: Patient looks and feels better, no cardiac complaints. Today, he underwent a Lexiscan thallium stress test, which demonstrates a nonischemic cardiomyopathy. Objective Vital Signs Temp Pulse Pulse Resp BP Pulse Ox 09/06/18 12:08 98.7 F 97 H 20 110/69 100 09/06/18 10:58 108/86 09/06/18 10:55 106/79 09/06/18 10:53 107/73 09/06/18 10:52 108/83 09/06/18 10:51 103/69 09/06/18 10:30 89/69 09/06/18 05:18 98.3 F 49 L 16 114/67 95 09/06/18 00:09 97.8 F 102 H 17 97/70 89 09/05/18 22:00 107 H 17 89 09/05/18 21:01 51 L 113/72 09/05/18 16:53 98.7 F 103 H 16 117/85 100 - Physical Examination General: No Apparent Distress HEENT: Positive: PERRL Neck: Positive: trachea midline Cardiac: Positive: Reg Rate and Rhythm Lungs: Positive: Decreased Breath Sounds Neuro: Positive: Grossly Intact Extremities: Absent: edema - Imaging and Cardiology EKG: report reviewed (normal sinus rhythm premature ventricular complexes 92/m LVH by voltage criteria)
[2018-09-06] MEDS: ZESTRIL PO SCH (12:54)
[2018-09-06] MEDS: ALDACTONE PO SCH (12:54)
[2018-09-06] MEDS: COREG PO SCH (12:55)
[2018-09-06] MEDS: HALFPRIN EC PO SCH (12:55)
[2018-09-06] MEDS: PEPCID PO SCH (12:55)
[2018-09-06] MEDS: SODIUM CHLORIDE FLUSH SYRINGE 10 ML IV SCH (14:15)
--- NOTE | 2018-09-07 02:26 | Treadmill Report ---
THALLIUM STRESS TEST LEFT VENTRICLE: The left ventricle is severely dilated. There is a small fixed basal inferior defect, worse on the resting study. No significant reversible defects identified. Gated analysis demonstrates severe left ventricular systolic dysfunction, ejection fraction of 10%. CONCLUSION: Evidence of a severe dilated cardiomyopathy, severe left ventricular systolic dysfunction, ejection fraction of 10%. The perfusion study demonstrates a small fixed basal inferior defect consistent with diaphragmatic attenuation artifact. There are no significant fixed or ischemic defects on this study, suggesting likely nonischemic cardiomyopathy. Clinical correlation is recommended. JOB# [id number] CA/NTS
== END 2018-09-06 15:40 | disposition home or self-care (01) | DRG 291 ==
LOC: ED 10:46 → 3A 15:09
PROVIDERS: ADMIT Internal Medicine; ATTEND Internal Medicine
DX: I50.43 Acute on chronic combined systolic (congestive) and diastolic (congestive) heart failure (principal); J18.9 Pneumonia, unspecified organism; E44.0 Moderate protein-calorie malnutrition; I47.2 Ventricular tachycardia; I42.0 Dilated cardiomyopathy; R74.0 Nonspecific elevation of levels of transaminase and lactic acid dehydrogenase [LDH]; F17.210 Nicotine dependence, cigarettes, uncomplicated; Z82.49 Family history of ischemic heart disease and other diseases of the circulatory system; Z68.20 Body mass index [BMI] 20.0-20.9, adult; Z88.1 Allergy status to other antibiotic agents; Z88.8 Allergy status to other drugs, medicaments and biological substances
CPT/HCPCS: 36415; 71046; 74160; 78452; 80048; 80053; 80074; 82140; 82962; 83036; 83735; 83880; 84156; 84443; 85025; 87040; 87806; 93005; 93010; 93017; 93306; 93970; G0378; A9502; J0456; J0696; J1100; J1200; J1650; J1940; J1956; J2785; J7050; Q9967